=== PATIENT | male | born 1950 | race American Indian/Alaskan Native ===

== ENCOUNTER 2018-05-26 08:41 | Outpatient (CLI) | payer MEDICARE | END 2018-05-26 08:42 | disposition home or self-care (01) | LOC: C.VASC 08:41 | DX: I73.9 Peripheral vascular disease, unspecified (principal) ==

== ENCOUNTER 2018-07-29 15:24 | Inpatient (IN) | payer MEDICARE | END 2018-07-31 19:20 | disposition home or self-care (01) | LOC: C.ER 15:24 → C.9E 16:08 → C.6T 17:51 ==